=== PATIENT | female | born 1990 | race Caucasian/White ===

== ENCOUNTER 2017-11-23 12:35 | Inpatient (IN) ==
--- NOTE | 2017-11-23 14:11 | ED ---
HPI General Chief Complaint: Abdominal Pain Stated Complaint: Poss gul stones x 1 day Time Seen by Provider: 11/23/17 14:02 History of Present Illness HPI narrative: The patient was seen and examined in the presence of the nurse. This patient complains of abdominal pain. She woke up at 4 AM this morning with the pain. Severity is moderate. Duration is 10 hours. Location of pain is right upper quadrant. No alleviating factors. No exacerbating factors. She did have a workup at [facility] emergency room for the exact same thing recently and was found to have gallstones on ultrasound. Related Data Home Medications Medication Instructions Recorded Confirmed tramadol 50 mg PO Q6H 11/23/17 11/23/17 Allergies Allergy/AdvReac Type Severity Reaction Status Date / Time No Known Allergies Allergy Verified 11/23/17 12:53 Review of Systems Except as stated in HPI: all other systems reviewed are negative [facility] Medical History Medical History Hx of gallstones (Acute) Surgical History Surgical History No history of previous surgery (Acute) Social History Social History Substance History: No History of Abuse Second Hand Smoke Exposure: No Smoking Status: Current some day smoker Tobacco Type: Cigarettes How Often Do You Have a Drink Containing Alcohol: Monthly or less Recent Travel in [facility] within the Last 8 Weeks: No Recent Out of Country Travel within the Last 8 Weeks: No Exam Narrative Exam Narrative: GENERAL: Well-nourished, well-developed patient with abdominal pain . SKIN: Focused skin assessment reveals no rash and nodules. Skin is Warm and dry. HEAD: Atraumatic. Normocephalic. EYES: Pupils equal and round. No scleral icterus. No injection or drainage. ENT: No nasal bleeding or discharge. Mucous membranes pink and moist. NECK: Trachea midline. No JVD. CARDIOVASCULAR: Regular rate and rhythm. No murmur appreciated. RESPIRATORY: No accessory muscle use. Clear to auscultation. Breath sounds equal bilaterally. GASTROINTESTINAL: Abdomen soft, right upper quadrant is tender without rebound or guarding, nondistended. Hepatic and splenic margins not palpable. MUSCULOSKELETAL: No obvious deformities. No clubbing. No cyanosis. No edema. NEUROLOGICAL: Awake and alert. No obvious cranial nerve deficits. Motor grossly within normal limits. Normal speech. PSYCHIATRIC: Appropriate mood and affect; insight and judgment normal. Course Initial Documented Vital Signs Temperature 98.7 F 11/23/17 12:54 Pulse Rate 63 11/23/17 12:54 Respiratory Rate 16 11/23/17 12:54 Blood Pressure 128/68 11/23/17 12:54 Pulse Oximetry 99 11/23/17 12:54 Last Documented Vital Signs Temperature 98.7 F 11/23/17 12:54 Pulse Rate 60 11/23/17 18:24 Respiratory Rate 18 11/23/17 18:24 Blood Pressure 122/78 11/23/17 18:24 Pulse Oximetry 98 11/23/17 18:24 Sign Out Sign Out Data: Patient Sign Out occurred on 11/23/17 at 15:20. Patient's care was discussed, and care was transferred from Herrera Ricardo MD to Wesley Juan MD. Sign Out Comment: I am checking the patient out to the 3 PM physician to assist with disposition after workup complete Last updated by Herrera Ricardo MD at 11/23/17 14:46 Post-Handoff Eval: Patient has significant persistent pain to epigastrium radiating to right scapula consistent with Mary no cholelithiasis and pancreatitis. Leukocytosis evidenced and patient admitted for retrograde evaluation and surgical evaluation Medical Decision Making MDM Narrative Medical decision making narrative: IV placed and labs studies sent I gave her injection of morphine and Zofran for symptom relief Going to order ultrasound of the right upper quadrant to evaluate for cholecystitis changes. Differential Diagnosis Differential Diagnosis: Cholecystitis, biliary colic, pancreatitis Medical Records Medical records reviewed: Yes I reviewed the patient's medical records. Lab Data Result diagrams: 11/23/17 16:55 11/23/17 16:55 Lab Results 11/23/17 11/23/17 11/23/17 Range/Units 16:55 16:55 16:55 CBC w Diff Auto diff final WBC 12.3 H (4.0-11.0) th/mm3 RBC 4.98 (4.00-5.30) mil/mm3 Hgb 14.9 (11.6-15.3) gm/dL Hct 44.1 (35.0-46.0) % MCV 88.4 (80.0-100.0) fL MCH 29.9 (27.0-34.0) pg MCHC 33.8 (32.0-36.0) % RDW 14.1 (11.6-17.2) % Plt Count 223 (150-450) th/mm3 MPV 9.9 (7.0-11.0) fL Neut % (Auto) 85.3 H (16.0-70.0) % Lymph % (Auto) 9.4 (9.0-44.0) % Union % (Auto) 3.1 (0.0-8.0) % Eos % (Auto) 0.1 (0.0-4.0) % Baso % (Auto) 2.1 H (0.0-2.0) % Neut # (Auto) 10.4 H (1.8-7.7) th/mm3 Lymph # (Auto) 1.2 (1.0-4.8) th/mm3 Union # (Auto) 0.4 (0.0-0.9) th/mm3 Eos # (Auto) 0.0 (0.0-0.4) th/mm3 Baso # (Auto) 0.3 H (0.0-0.2) th/mm3 WBC Differential . Differential Comment . PT 11.2 (9.8-11.6) sec INR 1.1 Ratio APTT 22.3 L (24.3-30.1) sec Sodium 142 (136-145) meq/L Potassium 3.8 (3.5-5.1) meq/L Chloride 113 H (98-107) meq/L Carbon Dioxide 20.5 L (21.0-32.0) meq/L Anion Gap 9 (5-15) meq/L BUN 11 (7-18) mg/dL Creatinine 0.67 (0.50-1.00) mg/dL Estimated GFR Greater than 89 (>89) mL/min Random Glucose 108 H (74-106) mg/dL Calcium 8.3 L (8.5-10.1) mg/dL Total Bilirubin 1.5 H (0.2-1.0) mg/dL AST 98 H (15-37) U/L ALT 111 H (10-53) U/L Alkaline Phosphatase 115 (45-117) U/L Total Protein 6.9 (6.4-8.2) g/dL Albumin 3.6 (3.4-5.0) g/dL Lipase 96108 H (73-393) U/L Imaging Data Radiologist's impression: Gallbladder Ultrasound 11/23/17 14:30 CONCLUSION: Discharge Plan Discharge Disposition Patient Disposition: 30 Still Patient Discharge Condition Condition: Stable Discharge Details Diagnosis: Cholelithiasis, Acute pancreatitis Physicians Team ED Provider: Wesley Juan Primary Care Provider: Primary Care Kelly Gonzales Attending Provider: Diallo Rehman Status ED Status: Admitted Patient
[2017-11-23] MEDS ORDERED: Morphine Inj 4 MG/ML Vial IV.PUSH ONE ×4 (14:30→19:37)
[2017-11-23] MEDS ORDERED: Sod Chloride 0.9% Inj 1,000 ML IV.SIG ONE (14:30)
--- NOTE | 2017-11-23 16:12 | US ---
EXAM DATE: 11/23/2017 4:01 PM EDT AGE/SEX: 27 years / Female INDICATIONS: Right upper quadrant abdominal pain. CLINICAL DATA: This is the patient's initial encounter. Patient reports that signs and/or symptoms h ave been present for 1 day and indicates a pain score of 4/10. MEDICAL/SURGICAL HISTORY: . Abdominal pain. None. COMPARISON: No prior exams available for comparison. MEASUREMENTS: Liver:__ 16.9 cm. Common Bile Duct:__ 11mm. FINDINGS: Liver: The liver is mildly prominent and there is apparent mild intrahepatic biliary ductal dilatati on. There is no focal mass. There is no ascites. Portal Vein: Hepatopedal flow seen in portal vein. Common Duct: The common bile duct is abnormally enlarged and measures up to 1.1 cm. There is no visu alized filling defect or stone. Entire duct could not be visualized. Gallbladder: The gallbladder is normal in size and wall thickness with no pericholecystic fluid. The re are multiple echogenic gallstones layering dependently in the gallbladder with posterior shadowing . Pancreas: The visualized portions of the pancreas are within normal limits. Right Kidney: Normal echotexture and cortical thickness. No mass or hydronephrosis. Other: None. 1. Cholelithiasis with small echogenic gallstones layering dependently. There is no gallbladder wall thickening or para cholecystic fluid. 2. Enlarged common bile duct measuring up to 1.1 cm with no visualized stone. The entire duct could not be visualized in the distal obstruction cannot be excluded. Electronically signed by: Francisco J Knowles MD 11/23/2017 4:11 PM EDT
[2017-11-23 17:02] LABS: Baso # (Auto) 0.3 th/mm3 (0.0-0.2); Baso % (Auto) 2.1 % (0.0-2.0); Eos % (Auto) 0.1 % (0.0-4.0); Hematocrit 44.1 % (35.0-46.0); Hemoglobin 14.9 gm/dL (11.6-15.3); Lymph # (Auto) 1.2 th/mm3 (1.0-4.8); Lymph % (Auto) 9.4 % (9.0-44.0); Mean Corpuscular HGB Conc 33.8 % (32.0-36.0); Mean Corpuscular Hemoglobin 29.9 pg (27.0-34.0); Mean Corpuscular Volume 88.4 fL (80.0-100.0); Mean Platelet Volume 9.9 fL (7.0-11.0); Mono # (Auto) 0.4 th/mm3 (0.0-0.9); Mono % (Auto) 3.1 % (0.0-8.0); Neut # (Auto) 10.4 th/mm3 (1.8-7.7); Neut % (Auto) 85.3 % (16.0-70.0); Platelet Count 223 th/mm3 (150-450); Red Blood Count 4.98 mil/mm3 (4.00-5.30); Red Cell Distribution Width 14.1 % (11.6-17.2); White Blood Count 12.3 th/mm3 (4.0-11.0)
[2017-11-23 17:24] LABS: Chloride 113 meq/L (98-107); Potassium 3.8 meq/L (3.5-5.1); Sodium 142 meq/L (136-145)
[2017-11-23 17:27] LABS: Albumin 3.6 g/dL (3.4-5.0); Anion Gap 9 meq/L (5-15); Calcium 8.3 mg/dL (8.5-10.1); Carbon Dioxide 20.5 meq/L (21.0-32.0); Glucose,Random 108 mg/dL (74-106)
[2017-11-23 17:28] LABS: Blood Urea Nitrogen 11 mg/dL (7-18)
[2017-11-23 17:29] LABS: Activated Partial Thrombo Time 22.3 sec (24.3-30.1); INR 1.1 Ratio; Prothrombin Time 11.2 sec (9.8-11.6)
[2017-11-23 17:30] LABS: Alanine Aminotransferase 111 U/L (10-53); Aspartate Aminotransferase 98 U/L (15-37)
[2017-11-23 17:31] LABS: Glomerular Filtration Rate Greater Than 89 mL/min (>89)
[2017-11-23 17:32] LABS: Total Protein 6.9 g/dL (6.4-8.2)
[2017-11-23 17:33] LABS: Alkaline Phosphatase 115 U/L (45-117); Lipase 19085 U/L (73-393)
[2017-11-23] MEDS ORDERED: Acetaminophen 325 MG Tablet PO PRN (19:38)
[2017-11-23] MEDS ORDERED: Morphine Inj 4 MG/ML Vial IV.PUSH PRN (19:44)
[2017-11-23] MEDS: Sod Chloride 0.9% Inj 1,000 ML IV.CONT SCH (19:46)
[2017-11-23] MEDS ORDERED: Temazepam 15 MG Capsule PO PRN (21:00)
[2017-11-23] MEDS: HYDROmorphone PF Inj 2 MG/ML Vial IV.PUSH PRN (21:06)
[2017-11-24] MEDS: HYDROmorphone PF Inj 2 MG/ML Vial IV.PUSH PRN ×5 (01:17→18:43)
[2017-11-24] MEDS: Sod Chloride 0.9% Inj 1,000 ML IV.CONT SCH ×2 (06:01→16:32)
[2017-11-24 07:20] LABS: Hematocrit 45.1 % (35.0-46.0); Hemoglobin 15.7 gm/dL (11.6-15.3); Mean Corpuscular HGB Conc 34.8 % (32.0-36.0); Mean Corpuscular Hemoglobin 30.6 pg (27.0-34.0); Mean Corpuscular Volume 87.9 fL (80.0-100.0); Mean Platelet Volume 10.3 fL (7.0-11.0); Platelet Count 220 th/mm3 (150-450); Red Blood Count 5.13 mil/mm3 (4.00-5.30); Red Cell Distribution Width 14.3 % (11.6-17.2)
[2017-11-24 07:32] LABS: Chloride 114 meq/L (98-107); Potassium 3.1 meq/L (3.5-5.1); Sodium 147 meq/L (136-145)
[2017-11-24 07:40] LABS: Calcium 8.1 mg/dL (8.5-10.1)
[2017-11-24 07:41] LABS: Albumin 3.3 g/dL (3.4-5.0); Anion Gap 13 meq/L (5-15); Blood Urea Nitrogen 9 mg/dL (7-18); Carbon Dioxide 20.2 meq/L (21.0-32.0); Glucose,Random 91 mg/dL (74-106)
[2017-11-24 07:44] LABS: Alanine Aminotransferase 112 U/L (10-53); Aspartate Aminotransferase 63 U/L (15-37); Glomerular Filtration Rate Greater Than 89 mL/min (>89)
[2017-11-24 07:45] LABS: Total Protein 6.5 g/dL (6.4-8.2)
[2017-11-24 07:46] LABS: Lipase 3111 U/L (73-393)
[2017-11-24 07:47] LABS: Alkaline Phosphatase 115 U/L (45-117)
--- NOTE | 2017-11-24 09:10 | MR ---
EXAM DATE: 11/24/2017 8:52 AM EDT AGE/SEX: 27 years / Female INDICATIONS: Abdominal pain. Abnormal ultrasound demonstrating cholelithiasis with small echogenic gallstones. The common bile duct was enlarged at 1.1 cm. CLINICAL DATA: This is the patient's subsequent encounter. Patient reports that signs and symptoms h ave been present for 2 days and indicates a pain score of 3/10. MEDICAL/SURGICAL HISTORY: None. None. COMPARISON: [facility], US ABDOMEN - GALLBLADDER, 11/23/2017. . TECHNIQUE: Multiplanar, multisequence images of the abdomen were obtained without contrast including dedicated cholangiographic images. FINDINGS: Study is degraded by motion artifact. Liver: The liver is homogeneous and normal in signal intensity with no focal defects. Is a small jennifer unt of ascitic fluid surrounding the liver margins. Intrahepatic Bile Ducts: There is no intrahepatic biliary ductal dilatation. Common Bile Duct: The common bile duct is prominent measuring up to 8 to 9 mm in greatest diameter. There are no filling defects or mass lesions identified. Gallbladder: Multiple low signal gallstones are noted within the gallbladder. Gallbladder wall thick ening versus pericholecystic fluid measuring up to approximately a centimeter. Pancreas: The pancreas appears normal in signal with no focal parenchymal abnormalities. The pancrea tic duct is normal in caliber with no filling defects, or obstructing lesions identified. There is a small right pleural effusion. CONCLUSION: 1. Cholelithiasis with numerous small low signal gallstones. Gallbladder wall thickening versus lio cholecystic fluid measuring up to a centimeter. 2. The common bile duct is prominent measuring 8 to 9 mm in size with no distinct filling defects. 3. Small amount of ascitic fluid in the abdomen. 4. Small right pleural effusion. 5. The study is degraded by motion artifact decreasing sensitivity. Electronically signed by: Francisco J Knowles MD 11/24/2017 9:09 AM EDT
--- NOTE | 2017-11-24 11:19 | P.HP ---
History of Present Illness Primary Care Physician: No Primary Care Physician Chief Complaint: Abdominal pain History of Present Illness: 27-year-old female with no chronic medical illnesses who had been having approximate 1 month history of abdominal pain, gallstone pain. Patient states that was month ago she went to [facility] physician was told that she had gallstones and should make outpatient appointment with general surgery for procedure. However patient has been unsuccessful thus far in doing that. Then day before yesterday she started having abdominal pain that progressively got worse until yesterday she had significant nausea and vomiting, severe abdominal pain. Patient came to emergency department for evaluation and found to have significant abnormalities with ultrasound indicating possible distal obstruction of the common bile duct, elevated liver enzymes, severely elevated lipase level. Patient was admitted the hospital for gallstone pancreatitis. MRCP was performed which did indicate pericholecystic fluid, however, mild tach is clear at this time. Lipase level has significantly improved. Indicating possible passed stone with gallstone pancreatitis. Patient states that she still a significant amount of pain. Requiring IV pain medication. However she is very thirsty and would like to drink and eat at this time. - Diagnosis (1) Acute gallstone pancreatitis Inpatient Certification: I certify that the inpatient services were ordered in accordance with Medicare regulations governing the order. This includes certification that hospital inpatient services are reasonable and necessary and in the case of services not specified as inpatient-only under 42 CFR 419.22(n), that they are appropriately provided as inpatient services in accordance to with the 2-midnight benchmark under 43 CFR 412.3(e) Estimated Total Length of Stay (Days): 3 Plans for Post Hospital Care: Home Review of Systems Gastrointestinal: Reports abdominal pain, Reports nausea, Reports vomiting PMFSH - History History Provided By: Patient, Significant Other - Medical History Medical History: Medical History (Last Reviewed 11/24/17 @ 11:13 by PEPE Iqbal) Hx of gallstones - Surgical History Surgical History: Surgical History (Last Reviewed 11/24/17 @ 11:13 by PEPE Iqbal) No history of previous surgery - Family History Family History: Family History (Last Updated 11/24/17 @ 11:13 by PEPE Iqbal) Other No pertinent family history - Tobacco History Second Hand Smoke Exposure: Yes Tobacco Use In Past 30 Days: Yes Smoking Status: Current every day smoker Tobacco Type: Cigarettes - Alcohol History How Often Do You Have a Drink Containing Alcohol: Monthly or less - Substance Use History Substance History: No History of Abuse - Travel History Recent Travel in the [place] Within the Last 8 Weeks: No Recent Travel Out of the Country Within the Last 8 Weeks: No - Immunization History Tetanus Immunization: Unsure Hx Influenza Vaccine This Season: No Medications and Allergies Active Medications: Active Medications Acetaminophen (Tylenol) 650 mg PO Q4H PRN PRN Reason: Temp > 100.4 Hydromorphone HCl (Dilaudid Pf Inj) 0.5 mg IV.PUSH Q4H PRN PRN Reason: ABDOMINAL PAIN 1-10 Last Admin: 11/24/17 10:45 Dose: 0.5 mg Sodium Chloride (Ns Inj) 1,000 mls @ 150 mls/hr IV.CONT .Q6H40M [facility] Last Admin: 11/24/17 06:01 Dose: 150 mls/hr Ceftazidime 1,000 mg/ Sodium (Chloride) 100 mls @ 200 mls/hr IV.SIG Q8H [facility] Last Infusion: 11/24/17 05:35 Dose: Infused Metronidazole/Sodium Chloride (Flagyl 500 Mg Inj) 100 mls @ 100 mls/hr IV.SIG Q8H [facility] Last Infusion: 11/24/17 06:32 Dose: Infused Ondansetron HCl (Zofran Odt) 4 mg PO Q6H PRN PRN Reason: NAUSEA OR VOMITING Sodium Chloride (Ns Flush) 2 ml IV.FLUSH PRN PRN PRN Reason: FLUSH AFTER USING IV ACCESS Temazepam (Restoril) 15 mg PO HS PRN PRN Reason: INSOMNIA Allergies Allergy/AdvReac Type Severity Reaction Status Date / Time No Known Allergies Allergy Verified 11/23/17 12:53 Home Medications Medication Instructions Recorded Confirmed Type tramadol 50 mg PO Q6H 11/23/17 11/23/17 History Exam Vital signs: Vital Signs 11/23/17 12:54 11/23/17 14:52 11/23/17 17:43 Temperature 98.7 F Pulse Rate 63 60 64 Respiratory Rate 16 18 18 Blood Pressure 128/68 117/70 125/75 Pulse Oximetry 99 100 98 11/23/17 18:24 11/23/17 20:26 11/23/17 21:16 Temperature 98.7 F Pulse Rate 60 82 66 Respiratory Rate 18 20 20 Blood Pressure 122/78 132/70 141/78 H Pulse Oximetry 98 11/23/17 21:40 11/23/17 22:56 11/24/17 04:00 Temperature 97.5 F L 97.9 F Pulse Rate 54 L 70 Respiratory Rate 16 16 Blood Pressure 132/71 131/76 Pulse Oximetry 98 98 99 11/24/17 08:03 Temperature 99.1 F Pulse Rate 81 Respiratory Rate 20 Blood Pressure 145/68 H Pulse Oximetry 96 Intake & Output 11/23/17 11/24/17 11/24/17 18:59 06:59 18:59 Intake Total 2400 / 2400 0 / 0 Balance 2400 / 2400 0 / 0 Weight 100 kg 103.7 kg Intake: IV 2400 / 2400 NS Inj 1,000 ML @ 150 mls/hr IV 1000 / 1000 .CONT .Q6H40M [facility] Rx#: [id number] Tazicef Inj 1,000 MG In NS Inj 200 / 200 100 ML @ 200 mls/hr IV.SIG Q8H [facility] Rx#:[id number] Flagyl 500 MG Inj 100 ML @ 100 200 / 200 mls/hr IV.SIG Q8H [facility] Rx#: [id number] Oral 0 / 0 Other: Date of Last Bowel Movement 11/20/17 Weight On Admission 103.7 kg Narrative: GENERAL: Well-developed, well-nourished, in no acute distress. alert and orientated HEENT: Head is normocephalic without any lesions or masses noted. Facial features are symmetric. Eyes: Pupils equal round reactive to light. Extraocular muscles are intact. Conjunctivae were clear. Oropharyngeal: Pharynx without any erythema edema. Tongue is midline without deviation. Buccal mucosa is moist without any masses or lesions NECK: Supple without any masses. Trachea midline no deviation. No JVD, no bruits are appreciated CARDIAC: Regular rhythm, regular rate. S1/S2 are heard. No murmurs gallops or rubs. LUNGS: Clear to auscultation bilaterally. No wheeze, rhonchi or rales. No use of accessory muscles on inspiration or expiration. ABDOMEN: Soft, mild diffuse tenderness noted. Nondistended. Bowel sounds heard in all 4 quadrants. No organomegaly or masses. Negative rebound, negative guarding EXTREMITIES: No edema, pulses are equal bilaterally. No cyanosis or clubbing NEUROLOGY: Mood and affect appear appropriate. Cranial nerves II through XII grossly intact. Muscle strength 5/5 in upper and lower extremities bilaterally. Deep tendon reflexes are 2+ in upper and lower extremities bilaterally. Results - Labs CBC & Chem 7: 11/24/17 05:40 11/24/17 05:40 Labs: Laboratory Results - last 24 hr 11/23/17 11/23/17 11/23/17 16:55 16:55 16:55 CBC w Diff Auto diff final WBC 12.3 H RBC 4.98 Hgb 14.9 Hct 44.1 MCV 88.4 MCH 29.9 MCHC 33.8 RDW 14.1 Plt Count 223 MPV 9.9 Neut % (Auto) 85.3 H Lymph % (Auto) 9.4 Clarke % (Auto) 3.1 Eos % (Auto) 0.1 Baso % (Auto) 2.1 H Neut # (Auto) 10.4 H Lymph # (Auto) 1.2 Clarke # (Auto) 0.4 Eos # (Auto) 0.0 Baso # (Auto) 0.3 H WBC Differential . Differential Comment . PT 11.2 INR 1.1 APTT 22.3 L Sodium 142 Potassium 3.8 Chloride 113 H Carbon Dioxide 20.5 L Anion Gap 9 BUN 11 Creatinine 0.67 Estimated GFR Greater than 89 Random Glucose 108 H Calcium 8.3 L Total Bilirubin 1.5 H AST 98 H ALT 111 H Alkaline Phosphatase 115 Total Protein 6.9 Albumin 3.6 Lipase 44716 H 11/24/17 11/24/17 05:40 05:40 CBC w Diff WBC 18.0 H RBC 5.13 Hgb 15.7 H Hct 45.1 MCV 87.9 MCH 30.6 MCHC 34.8 RDW 14.3 Plt Count 220 MPV 10.3 Neut % (Auto) Lymph % (Auto) Clarke % (Auto) Eos % (Auto) Baso % (Auto) Neut # (Auto) Lymph # (Auto) Clarke # (Auto) Eos # (Auto) Baso # (Auto) WBC Differential Differential Comment PT INR APTT Sodium 147 H Potassium 3.1 L Chloride 114 H Carbon Dioxide 20.2 L Anion Gap 13 BUN 9 Creatinine 0.60 Estimated GFR Greater than 89 Random Glucose 91 Calcium 8.1 L Total Bilirubin 1.1 H AST 63 H ALT 112 H Alkaline Phosphatase 115 Total Protein 6.5 Albumin 3.3 L Lipase 3111 H - Imaging Impressions Gallbladder Ultrasound 11/23/17 14:30 CONCLUSION: Cholangiopancreatography MRI 11/24/17 00:00 CONCLUSION: Caprinzeina VTE Risk Assessment Ibanrini VTE Risk Assessment: No/Low Risk (score <= 1) Ibanrini Risk Assessment Model: Point Value = 1 Point Value = 2 Point Value = 3 Point Value = 5 Age 41-60 Minor surgery BMI > 25 kg/m2 Swollen legs Varicose veins or History of unexplained or recurrent spontaneous Oral contraceptives or hormone replacement Sepsis (< 1 month) Serious lung disease, including pneumonia (< 1 month) Abnormal pulmonary function Acute myocardial infarction Congestive heart failure (< 1 month) History of inflammatory bowel disease Medical patient at bed rest Age 61-74 Arthroscopic surgery Major open surgery (> 45 min) Laparoscopic surgery (> 45 min) Malignancy Confined to bed (> 72 hours) Immobilizing plaster cast Central venous access Age >= 75 History of VTE Family history of VTE Factor V Leiden Prothrombin [id number] Lupus anticoagulant Anticardiolipin antibodies Elevated serum homocysteine Heparin-induced thrombocytopenia Other congenital or acquired thrombophilia Stroke (< 1 month) Elective arthroplasty Hip, pelvis, or leg fracture Acute spinal cord injury (< 1 month) Prophylaxis Regimen: Total Risk Factor Score Risk Level Prophylaxis Regimen 0-1 Low Early ambulation 2 Moderate Order ONE of the following: *Sequential Compression Device (SCD) *Heparin 5000 units SQ BID 3-4 Higher Order ONE of the following medications: *Heparin 5000 units SQ TID *Enoxaparin/Lovenox 40 mg SQ daily (WT < 150 kg, CrCl > 30 mL/min) *Enoxaparin/Lovenox 30 mg SQ daily (WT < 150 kg, CrCl > 10-29 mL/min) *Enoxaparin/Lovenox 30 mg SQ BID (WT < 150 kg, CrCl > 30 mL/min) AND/OR *Sequential Compression Device (SCD) 5 or more Highest Order ONE of the following medications: *Heparin 5000 units SQ TID (Preferred with Epidurals) *Enoxaparin/Lovenox 40 mg SQ daily (WT < 150 kg, CrCl > 30 mL/min) *Enoxaparin/Lovenox 30 mg SQ daily (WT < 150 kg, CrCl > 10-29 mL/min) *Enoxaparin/Lovenox 30 mg SQ BID (WT < 150 kg, CrCl > 30 mL/min) AND *Sequential Compression Device (SCD) Assessment and Plan - Assessment (1) Acute gallstone pancreatitis Code(s): K85.10 - Biliary acute pancreatitis without necrosis or infection Status: Acute - Plan Gallstone pancreatitis -Patient presented with significant abdominal pain, nausea, vomiting -Gallbladder ultrasound did indicate possible distal common bile duct obstruction -MRCP was performed which showed clear common bile duct with gallstones, gallbladder wall thickening versus pericholecystic fluid measuring up to a centimeter. Common bile duct is prominent at 8-9 mm in size -Laboratory studies did indicate elevated livers enzymes and significant pancreatic enzyme elevation -Given the fact that MRCP is showing no filling defects in the common bile duct. The patient had passed a gallstone, liver enzymes and pancreatic enzymes have also improved significantly. -Staff Toxicologist had follow the patient and indicating general surgery consultation -General surgery was consulted who will evaluate the patient today, plan for lap karine tomorrow morning if lipase below 1000 Leukocytosis -Continues to worsen -Given the worsening leukocytosis, gallstone pancreatitis. Patient started on empirical antibiotics include cefepime and Flagyl -Continue to follow CBC DVT prevention -Sequential compression devices
--- NOTE | 2017-11-24 16:38 | P.CONGS ---
HPI Gen Surgery Consult Note Consult date: 11/24/17 Reason for consult: abdominal pain Requesting physician: Herrera Mcrae Narrative: This is a 27 year old female with no significant past medical history who presented to the ED with about a 2 day history of abdominal pain with associated nausea. The patient reports that about 6 months ago or so she was in the ED in the [place] and diagnosed with gallstones. She was referred to a General Surgeon of whom she is unsure of the name for evaluation for cholecystectomy. She did not follow up. She joined a Facebook support group for patients with gallbladder issues and gallstones which she states helped her with dietary modifications. Of note the patient was on a Keto diet starting a few months ago and lost about 14 pounds intentionally. She was eating some dairy during this time and noticed RUQ pain. Once she was diagnosed with gallstones she started a low fat diet and lost an additional 16 pounds intentionally. A US of the gallbladder was obtained which showed cholelithiasis with a prominent common bile duct without wall thickening. An MRCP was done which showed an enlarged common bile duct but no filling defects. Her liver enzymes are elevated. Her lipase on admission was 19,000 and today down to 3,000. A General Surgery consultation has been requested. <Geeta Suarez - Last Filed: 11/25/17 09:30> Reason for consult: gallstones (Right upper quadrant abdominal pain) Narrative: CONSULTATION NOTE FOR SURGICAL ATTENDING, DR. JULIO ROCHE <MelchorJulio - Last Filed: 11/25/17 11:13> Review of Systems Constitutional: Denies chills, Denies night sweats Eyes: Denies blurry vision, Denies change in vision Ears, Nose, Mouth, and Throat: Denies hearing loss Cardiovascular: Denies chest pain, Denies chest pain at rest, Denies chest pain with activity Respiratory: Denies cough, Denies coughing up blood Gastrointestinal: Reports abdominal pain, Reports nausea, Denies vomiting Genitourinary: Denies absent period Musculoskeletal: Denies abnormal walking Skin/Breast: Denies lesions, Denies rash Neurologic: Denies abnormal hearing, Denies headache(s) Psychiatric: Denies anxiety, Denies confusion, Denies depression Endocrine: Denies cold intolerance, Denies heat intolerance Hematologic/Lymphatic: Denies easy bleeding Allergic/Immunologic: Denies lip swelling <Geeta Suarez - Last Filed: 11/25/17 09:30> Gastrointestinal: Reports abdominal pain (Right upper quadrant abdominal pain) <Julio Roche - Last Filed: 11/25/17 11:13> PMFSH - History History Provided By: Patient - Medical History Medical History: Medical History (Last Reviewed 11/24/17 @ 16:34 by NISHANT Monzon) Hx of gallstones - Surgical History Surgical History: Surgical History (Last Reviewed 11/24/17 @ 16:34 by NISHANT Monzon) No history of previous surgery - Family History Family History: Family History (Last Updated 11/24/17 @ 11:13 by PEPE Iqbal) Other No pertinent family history - Tobacco History Second Hand Smoke Exposure: Yes Tobacco Use In Past 30 Days: Yes Smoking Status: Current some day smoker Tobacco Type: Cigarettes - Alcohol History How Often Do You Have a Drink Containing Alcohol: Monthly or less - Substance Use History Substance History: No History of Abuse - Travel History Recent Travel in the [place] Within the Last 8 Weeks: No Recent Travel Out of the Country Within the Last 8 Weeks: No - Immunization History Tetanus Immunization: Unsure Hx Influenza Vaccine This Season: No <Geeta Suarez - Last Filed: 11/25/17 09:30> - Medical / Surgical Hx Neg / Unobtainable Surgical History: No Previous Surgery - Medical History Medical History: Medical History (Last Reviewed 11/24/17 @ 16:34 by NISHANT Monzon) Hx of gallstones - Surgical History Surgical History: Surgical History (Last Reviewed 11/25/17 @ 11:06 by Julio Roche MD) No history of previous surgery - Family History Family History: Family History (Last Updated 11/24/17 @ 11:13 by PEPE Iqbal) Other No pertinent family history <Julio Roche - Last Filed: 11/25/17 11:13> Medications and Allergies Active Medications: Active Medications Acetaminophen (Tylenol) 650 mg PO Q4H PRN PRN Reason: Temp > 100.4 Hydromorphone HCl (Dilaudid Pf Inj) 0.5 mg IV.PUSH Q4H PRN PRN Reason: ABDOMINAL PAIN 1-10 Last Admin: 11/24/17 14:53 Dose: 0.5 mg Sodium Chloride (Ns Inj) 1,000 mls @ 150 mls/hr IV.CONT .Q6H40M [facility] Last Admin: 11/24/17 06:01 Dose: 150 mls/hr Ceftazidime 1,000 mg/ Sodium (Chloride) 100 mls @ 200 mls/hr IV.SIG Q8H [facility] Last Infusion: 11/24/17 13:18 Dose: Infused Metronidazole/Sodium Chloride (Flagyl 500 Mg Inj) 100 mls @ 100 mls/hr IV.SIG Q8H [facility] Last Infusion: 11/24/17 14:24 Dose: Infused Ondansetron HCl (Zofran Odt) 4 mg PO Q6H PRN PRN Reason: NAUSEA OR VOMITING Sodium Chloride (Ns Flush) 2 ml IV.FLUSH PRN PRN PRN Reason: FLUSH AFTER USING IV ACCESS Temazepam (Restoril) 15 mg PO HS PRN PRN Reason: INSOMNIA <Geeta Suarez - Last Filed: 11/25/17 09:30> Active Medications: Active Medications Acetaminophen (Tylenol) 650 mg PO Q4H PRN PRN Reason: Temp > 100.4 Chlorhexidine Gluconate (Chlorhexidine 2% Cloth) 3 pack TOPICAL PRODUCE WEIGHER [facility] Stop: 11/28/17 10:44 Hydromorphone HCl (Dilaudid Pf Inj) 0.5 mg IV.PUSH Q4H PRN PRN Reason: ABDOMINAL PAIN 1-10 Last Admin: 11/25/17 08:27 Dose: 0.5 mg Sodium Chloride (Ns Inj) 1,000 mls @ 150 mls/hr IV.CONT .Q6H40M [facility] Last Infusion: 11/25/17 10:27 Dose: 0 mls/hr Ceftazidime 1,000 mg/ Sodium (Chloride) 100 mls @ 200 mls/hr IV.SIG Q8H [facility] Last Infusion: 11/25/17 05:00 Dose: Infused Metronidazole/Sodium Chloride (Flagyl 500 Mg Inj) 100 mls @ 100 mls/hr IV.SIG Q8H [facility] Last Infusion: 11/25/17 06:00 Dose: Infused Lactated Ringer's (Lr 1000 Ml Inj) 1,000 mls @ 30 mls/hr IV.SIG .Q24H [facility] Stop: 11/28/17 10:44 Sodium Chloride (Ns Inj) 500 mls @ 30 mls/hr IV.SIG .Q10H [facility] Stop: 11/28/17 10:44 Metoprolol Tartrate (Lopressor) 25 mg PO PRODUCE WEIGHER [facility] Stop: 11/28/17 10:44 Ondansetron HCl (Zofran Odt) 4 mg PO Q6H PRN PRN Reason: NAUSEA OR VOMITING Povidone Iodine (Betadine 5% Antisepsis Kit) 1 applicatio EACH NARE PRODUCE WEIGHER [facility] Stop: 11/28/17 10:44 Sodium Chloride (Ns Flush) 2 ml IV.FLUSH PRN PRN PRN Reason: FLUSH AFTER USING IV ACCESS Temazepam (Restoril) 15 mg PO HS PRN PRN Reason: INSOMNIA <Julio Roche - Last Filed: 11/25/17 11:13> Allergies Allergy/AdvReac Type Severity Reaction Status Date / Time No Known Allergies Allergy Verified 11/25/17 10:51 Home Medications Medication Instructions Recorded Confirmed Type tramadol 50 mg PO Q6H 11/23/17 11/23/17 History Exam Vital signs: Vital Signs 11/23/17 17:43 11/23/17 18:24 11/23/17 20:26 Temperature 98.7 F Pulse Rate 64 60 82 Respiratory Rate 18 18 20 Blood Pressure 125/75 122/78 132/70 Pulse Oximetry 98 98 11/23/17 21:16 11/23/17 21:40 11/23/17 22:56 Temperature 97.5 F L Pulse Rate 66 54 L Respiratory Rate 20 16 Blood Pressure 141/78 H 132/71 Pulse Oximetry 98 98 11/24/17 04:00 11/24/17 08:03 11/24/17 12:00 Temperature 97.9 F 99.1 F 96.9 F L Pulse Rate 70 81 89 Respiratory Rate 16 20 22 Blood Pressure 131/76 145/68 H 129/60 Pulse Oximetry 99 96 97 Intake & Output 11/23/17 11/24/17 11/24/17 18:59 06:59 18:59 Intake Total 2400 / 2400 200 / 200 Balance 2400 / 2400 200 / 200 Weight 100 kg 103.7 kg Intake: IV 2400 / 2400 200 / 200 NS Inj 1,000 ML @ 150 mls/hr IV 1000 / 1000 .CONT .Q6H40M [facility] Rx#: [id number] Tazicef Inj 1,000 MG In NS Inj 200 / 200 100 / 100 100 ML @ 200 mls/hr IV.SIG Q8H [facility] Rx#:[id number] Flagyl 500 MG Inj 100 ML @ 100 200 / 200 100 / 100 mls/hr IV.SIG Q8H [facility] Rx#: [id number] Oral 0 / 0 Other: Date of Last Bowel Movement 11/20/17 Weight On Admission 103.7 kg Narrative: GENERAL: Very pleasant 27 year old female resting in bed in no acute distress. SKIN: Warm and dry. HEAD: Atraumatic. Normocephalic. EYES: Pupils equal and round. No scleral icterus. No injection or drainage. ENT: No nasal bleeding or discharge. Mucous membranes pink and moist. NECK: Trachea midline. CARDIOVASCULAR: Regular rate and rhythm. RESPIRATORY: No accessory muscle use. Clear to auscultation. Breath sounds equal bilaterally. GASTROINTESTINAL: Abdomen soft, obese, nondistended; RUQ and LUQ tenderness with palpation. No visible scars or hernias. MUSCULOSKELETAL: Extremities without clubbing, cyanosis, or edema. No obvious deformities. NEUROLOGICAL: Awake and alert. No obvious cranial nerve deficits. Motor grossly within normal limits. Five out of 5 muscle strength in the arms and legs. Normal speech. PSYCHIATRIC: Appropriate mood and affect; insight and judgment normal. <Geeta Suarez - Last Filed: 11/25/17 09:30> Vital signs: Vital Signs 11/24/17 12:00 11/24/17 17:26 11/24/17 20:00 Temperature 96.9 F L 99.1 F 100.5 F H Pulse Rate 89 76 88 Respiratory Rate 22 20 20 Blood Pressure 129/60 130/66 125/66 Pulse Oximetry 97 98 97 11/25/17 00:00 11/25/17 04:00 11/25/17 08:00 Temperature 100.1 F H 100.4 F H 98.8 F Pulse Rate 94 H 92 H Respiratory Rate 18 18 Blood Pressure 95/56 L 113/65 Pulse Oximetry 96 99 11/25/17 10:40 Temperature 98.8 F Pulse Rate 89 Respiratory Rate 16 Blood Pressure 104/65 Pulse Oximetry 98 Intake & Output 11/24/17 11/25/17 11/25/17 18:59 06:59 18:59 Intake Total 1200 / 1200 1400 / 1400 Output Total 400 / 400 Balance 800 / 800 1400 / 1400 Weight 103.6 kg Intake: IV 1200 / 1200 1400 / 1400 NS Inj 1,000 ML @ 150 mls/hr IV 1000 / 1000 1000 / 1000 .CONT .Q6H40M [facility] Rx#: [id number] Tazicef Inj 1,000 MG In NS Inj 100 / 100 200 / 200 100 ML @ 200 mls/hr IV.SIG Q8H [facility] Rx#:[id number] Flagyl 500 MG Inj 100 ML @ 100 100 / 100 200 / 200 mls/hr IV.SIG Q8H [facility] Rx#: [id number] Oral 0 / 0 0 / 0 Output: Urine 400 / 400 Stool 0 / 0 Other: # Voids 4 Date of Last Bowel Movement 11/24/17 - Constitutional mild distress, average body habitus - Routine HEENT Exam Head: Present: normocephalic Eye: Present: EOMI - Routine Neck Exam Present: supple, full ROM - Routine Respiratory Exam Present: CTA bilaterally - Routine Cardiovascular Exam Present: RRR, S1, S2 - Routine Abdominal Exam Present: soft, tenderness (Right upper quadrant) <Julio Roche - Last Filed: 11/25/17 11:13> Results - Labs 11/25/17 05:09 11/25/17 05:19 Abnormal lab results 11/23/17 11/23/17 11/23/17 Range/Units 16:55 16:55 16:55 WBC 12.3 H (4.0-11.0) th/mm3 Hgb (11.6-15.3) gm/dL Neut % (Auto) 85.3 H (16.0-70.0) % Baso % (Auto) 2.1 H (0.0-2.0) % Neut # (Auto) 10.4 H (1.8-7.7) th/mm3 Baso # (Auto) 0.3 H (0.0-0.2) th/mm3 APTT 22.3 L (24.3-30.1) sec Sodium (136-145) meq/L Potassium (3.5-5.1) meq/L Chloride 113 H (98-107) meq/L Carbon Dioxide 20.5 L (21.0-32.0) meq/L Random Glucose 108 H (74-106) mg/dL Calcium 8.3 L (8.5-10.1) mg/dL Total Bilirubin 1.5 H (0.2-1.0) mg/dL AST 98 H (15-37) U/L ALT 111 H (10-53) U/L Albumin (3.4-5.0) g/dL Lipase 13413 H (73-393) U/L 11/24/17 11/24/17 Range/Units 05:40 05:40 WBC 18.0 H (4.0-11.0) th/mm3 Hgb 15.7 H (11.6-15.3) gm/dL Neut % (Auto) (16.0-70.0) % Baso % (Auto) (0.0-2.0) % Neut # (Auto) (1.8-7.7) th/mm3 Baso # (Auto) (0.0-0.2) th/mm3 APTT (24.3-30.1) sec Sodium 147 H (136-145) meq/L Potassium 3.1 L (3.5-5.1) meq/L Chloride 114 H (98-107) meq/L Carbon Dioxide 20.2 L (21.0-32.0) meq/L Random Glucose (74-106) mg/dL Calcium 8.1 L (8.5-10.1) mg/dL Total Bilirubin 1.1 H (0.2-1.0) mg/dL AST 63 H (15-37) U/L ALT 112 H (10-53) U/L Albumin 3.3 L (3.4-5.0) g/dL Lipase 3111 H (73-393) U/L Diabetes panel 11/23/17 11/24/17 Range/Units 16:55 05:40 Sodium 142 147 H (136-145) meq/L Potassium 3.8 3.1 L (3.5-5.1) meq/L Chloride 113 H 114 H (98-107) meq/L Carbon Dioxide 20.5 L 20.2 L (21.0-32.0) meq/L BUN 11 9 (7-18) mg/dL Creatinine 0.67 0.60 (0.50-1.00) mg/dL Calcium 8.3 L 8.1 L (8.5-10.1) mg/dL AST 98 H 63 H (15-37) U/L ALT 111 H 112 H (10-53) U/L Alkaline Phosphatase 115 115 (45-117) U/L Total Protein 6.9 6.5 (6.4-8.2) g/dL Albumin 3.6 3.3 L (3.4-5.0) g/dL Calcium panel 11/23/17 11/24/17 Range/Units 16:55 05:40 Calcium 8.3 L 8.1 L (8.5-10.1) mg/dL Albumin 3.6 3.3 L (3.4-5.0) g/dL Pituitary panel 11/23/17 11/24/17 Range/Units 16:55 05:40 Sodium 142 147 H (136-145) meq/L Potassium 3.8 3.1 L (3.5-5.1) meq/L Chloride 113 H 114 H (98-107) meq/L Carbon Dioxide 20.5 L 20.2 L (21.0-32.0) meq/L BUN 11 9 (7-18) mg/dL Creatinine 0.67 0.60 (0.50-1.00) mg/dL Calcium 8.3 L 8.1 L (8.5-10.1) mg/dL Adrenal panel 11/23/17 11/24/17 Range/Units 16:55 05:40 Sodium 142 147 H (136-145) meq/L Potassium 3.8 3.1 L (3.5-5.1) meq/L Chloride 113 H 114 H (98-107) meq/L Carbon Dioxide 20.5 L 20.2 L (21.0-32.0) meq/L BUN 11 9 (7-18) mg/dL Creatinine 0.67 0.60 (0.50-1.00) mg/dL Calcium 8.3 L 8.1 L (8.5-10.1) mg/dL Total Bilirubin 1.5 H 1.1 H (0.2-1.0) mg/dL AST 98 H 63 H (15-37) U/L ALT 111 H 112 H (10-53) U/L Alkaline Phosphatase 115 115 (45-117) U/L Total Protein 6.9 6.5 (6.4-8.2) g/dL Albumin 3.6 3.3 L (3.4-5.0) g/dL All other labs normal. - Imaging US - abdomen: report reviewed Additional studies: MRCP <Geeta Suarez - Last Filed: 11/25/17 09:30> - Labs 11/25/17 05:09 11/25/17 05:19 Abnormal lab results 11/25/17 11/25/17 Range/Units 05:09 05:19 WBC 13.3 H (4.0-11.0) th/mm3 Neut % (Auto) 76.6 H (16.0-70.0) % [place] % (Auto) 9.0 H (0.0-8.0) % Neut # (Auto) 10.1 H (1.8-7.7) th/mm3 [place] # (Auto) 1.2 H (0.0-0.9) th/mm3 Potassium 3.4 L (3.5-5.1) meq/L Chloride 112 H (98-107) meq/L Calcium 7.6 L (8.5-10.1) mg/dL Total Protein 5.4 L D (6.4-8.2) g/dL Albumin 2.4 L D (3.4-5.0) g/dL Lipase 937 H (73-393) U/L Diabetes panel 11/25/17 Range/Units 05:19 Sodium 142 (136-145) meq/L Potassium 3.4 L (3.5-5.1) meq/L Chloride 112 H (98-107) meq/L Carbon Dioxide 21.3 (21.0-32.0) meq/L BUN 9 (7-18) mg/dL Creatinine 0.59 (0.50-1.00) mg/dL Calcium 7.6 L (8.5-10.1) mg/dL AST 19 (15-37) U/L ALT 49 (10-53) U/L Alkaline Phosphatase 75 (45-117) U/L Total Protein 5.4 L D (6.4-8.2) g/dL Albumin 2.4 L D (3.4-5.0) g/dL Calcium panel 11/25/17 Range/Units 05:19 Calcium 7.6 L (8.5-10.1) mg/dL Albumin 2.4 L D (3.4-5.0) g/dL Pituitary panel 11/25/17 Range/Units 05:19 Sodium 142 (136-145) meq/L Potassium 3.4 L (3.5-5.1) meq/L Chloride 112 H (98-107) meq/L Carbon Dioxide 21.3 (21.0-32.0) meq/L BUN 9 (7-18) mg/dL Creatinine 0.59 (0.50-1.00) mg/dL Calcium 7.6 L (8.5-10.1) mg/dL Adrenal panel 11/25/17 Range/Units 05:19 Sodium 142 (136-145) meq/L Potassium 3.4 L (3.5-5.1) meq/L Chloride 112 H (98-107) meq/L Carbon Dioxide 21.3 (21.0-32.0) meq/L BUN 9 (7-18) mg/dL Creatinine 0.59 (0.50-1.00) mg/dL Calcium 7.6 L (8.5-10.1) mg/dL Total Bilirubin 0.8 (0.2-1.0) mg/dL AST 19 (15-37) U/L ALT 49 (10-53) U/L Alkaline Phosphatase 75 (45-117) U/L Total Protein 5.4 L D (6.4-8.2) g/dL Albumin 2.4 L D (3.4-5.0) g/dL All other labs normal. - Imaging Chest x-ray: report reviewed Abdominal x-ray: report reviewed CT scan - abdomen: image reviewed CT scan - chest: report reviewed CT scan - pelvis: report reviewed (MRCP reviewed) US - abdomen: image reviewed Additional studies: MRCP reviewed <Julio Roche - Last Filed: 11/25/17 11:13> Assessment and Plan - Plan 27 year old female with gallstone pancreatitis -Recheck labs in AM -If lipase continues to trend down will plan for laparoscopic cholecystectomy tomorrow -Obtain consents -Clear liquids; NPO after MN -IVF -Discussed procedure in detail including risks and benefits -All questions answered -Thank you for this consult; We will continue to follow Discussed Condition With: Dr. Melchor CANTU [place] <Geeta Suarez - Last Filed: 11/25/17 09:30> - Assessment (1) Acute gallstone pancreatitis Code(s): K85.10 - Biliary acute pancreatitis without necrosis or infection Status: Acute (2) Acute pancreatitis Code(s): K85.90 - Acute pancreatitis without necrosis or infection, unspecified Status: Acute Qualifiers: Pancreatitis type: biliary (3) Cholelithiasis Code(s): K80.20 - Calculus of gallbladder without cholecystitis without obstruction Status: Acute Qualifiers: Cholelithiasis location: gallbladder and bile duct Cholecystitis acuity: acute and chronic (4) Abnormal findings on diagnostic imaging of liver and biliary tract Code(s): R93.2 - Abnormal findings on diagnostic imaging of liver and biliary tract Status: Acute - Attending Attestation CONSULTATION NOTE FOR SURGICAL ATTENDING, DR. JULIO ROCHE I agree with above assessment and plan. The exam, history, and the medical decision-making described in the above note were completed with the assistance of the mid-level provider. I reviewed and agree with the findings presented. I attest that I had a [id number] encounter with the patient on the same day, and personally performed and documented my assessment and findings in the medical record. The following services were provided during this hospital visit: Chart data review, vital sign assessments/reviewing monitor data Review of consultations notes if present. Medication orders/review and/or management Ordering and/or reviewing lab tests Ordering and/or interpreting/reviewing x-rays and/or diagnostic studies Care of the patient and discussion of the patient with the care team Documentation time To help prompt me to consider important information that might be impacting today's encounter and assessment, Information from prior notes written by myself or my colleagues may have been "brought forward/copy and pasted" into today's note. <Julio Roche - Last Filed: 11/25/17 11:13>
--- NOTE | 2017-11-24 17:41 | P.CONGI ---
History of Present Illness Consult date: 11/24/17 Consult reason: Abdominal pain, elevated liver function tests, dilated common bile duct Chief complaint: CHOLELITHIASIS; PANCREATITIS History of Present Illness: Patient is a 27-year-old female previously healthy who for the past 2 months has had intermittent but frequent episodes of right upper quadrant abdominal pain sometimes associated with nausea vomiting at one time she had fever and went to the emergency room she was told she had gallstones and that she needed surgery but was not admitted past couple days the pain had been severe with lots of nausea and vomiting and her urine turned dark and this prompted her to come in on admission through the ED a CAT scan was performed and she was noted to have cholelithiasis and a dilated common bile duct with elevated liver function tests and her lipase was over 19,000 Currently patient laying in bed with complaints of significant right upper quadrant pain but no nausea or vomiting at this point Review of Systems All other systems reviewed negative except as stated in HPI PMFSH - History History Provided By: Patient - Medical History Medical History: Medical History (Last Reviewed 11/24/17 @ 16:34 by NISHANT Monzon) Hx of gallstones - Surgical History Surgical History: Surgical History (Last Reviewed 11/24/17 @ 16:34 by NISHANT Monzon) No history of previous surgery - Family History Family History: Family History (Last Updated 11/24/17 @ 11:13 by PEPE Iqbal) Other No pertinent family history - Tobacco History Second Hand Smoke Exposure: Yes Tobacco Use In Past 30 Days: Yes Smoking Status: Current some day smoker Tobacco Type: Cigarettes - Alcohol History How Often Do You Have a Drink Containing Alcohol: Monthly or less - Substance Use History Substance History: No History of Abuse - Travel History Recent Travel in the [facility] Within the Last 8 Weeks: No Recent Travel Out of the Country Within the Last 8 Weeks: No - Immunization History Tetanus Immunization: Unsure Hx Influenza Vaccine This Season: No Medications and Allergies Active Medications: Active Medications Acetaminophen (Tylenol) 650 mg PO Q4H PRN PRN Reason: Temp > 100.4 Hydromorphone HCl (Dilaudid Pf Inj) 0.5 mg IV.PUSH Q4H PRN PRN Reason: ABDOMINAL PAIN 1-10 Last Admin: 11/24/17 14:53 Dose: 0.5 mg Sodium Chloride (Ns Inj) 1,000 mls @ 150 mls/hr IV.CONT .Q6H40M [facility] Last Admin: 11/24/17 16:32 Dose: 150 mls/hr Ceftazidime 1,000 mg/ Sodium (Chloride) 100 mls @ 200 mls/hr IV.SIG Q8H [facility] Last Infusion: 11/24/17 13:18 Dose: Infused Metronidazole/Sodium Chloride (Flagyl 500 Mg Inj) 100 mls @ 100 mls/hr IV.SIG Q8H [facility] Last Infusion: 11/24/17 14:24 Dose: Infused Ondansetron HCl (Zofran Odt) 4 mg PO Q6H PRN PRN Reason: NAUSEA OR VOMITING Sodium Chloride (Ns Flush) 2 ml IV.FLUSH PRN PRN PRN Reason: FLUSH AFTER USING IV ACCESS Temazepam (Restoril) 15 mg PO HS PRN PRN Reason: INSOMNIA Allergies Allergy/AdvReac Type Severity Reaction Status Date / Time No Known Allergies Allergy Verified 11/23/17 12:53 Home Medications Medication Instructions Recorded Confirmed Type tramadol 50 mg PO Q6H 11/23/17 11/23/17 History Exam Vital signs: Vital Signs 11/23/17 17:43 11/23/17 18:24 11/23/17 20:26 Temperature 98.7 F Pulse Rate 64 60 82 Respiratory Rate 18 18 20 Blood Pressure 125/75 122/78 132/70 Pulse Oximetry 98 98 11/23/17 21:16 11/23/17 21:40 11/23/17 22:56 Temperature 97.5 F L Pulse Rate 66 54 L Respiratory Rate 20 16 Blood Pressure 141/78 H 132/71 Pulse Oximetry 98 98 11/24/17 04:00 11/24/17 08:03 11/24/17 12:00 Temperature 97.9 F 99.1 F 96.9 F L Pulse Rate 70 81 89 Respiratory Rate 16 20 22 Blood Pressure 131/76 145/68 H 129/60 Pulse Oximetry 99 96 97 11/24/17 17:26 Temperature 99.1 F Pulse Rate 76 Respiratory Rate 20 Blood Pressure 130/66 Pulse Oximetry 98 Intake & Output 11/23/17 11/24/17 11/24/17 18:59 06:59 18:59 Intake Total 2400 / 2400 1200 / 1200 Balance 2400 / 2400 1200 / 1200 Weight 100 kg 103.7 kg Intake: IV 2400 / 2400 1200 / 1200 NS Inj 1,000 ML @ 150 mls/hr IV 1000 / 1000 1000 / 1000 .CONT .Q6H40M [facility] Rx#: [id number] Tazicef Inj 1,000 MG In NS Inj 200 / 200 100 / 100 100 ML @ 200 mls/hr IV.SIG Q8H [facility] Rx#:[id number] Flagyl 500 MG Inj 100 ML @ 100 200 / 200 100 / 100 mls/hr IV.SIG Q8H [facility] Rx#: [id number] Oral 0 / 0 Other: Date of Last Bowel Movement 11/20/17 Weight On Admission 103.7 kg - Constitutional no acute distress - Routine HEENT Exam Head: Present: normocephalic, atraumatic Eye: Present: EOMI - Routine Neck Exam Present: supple - Routine Cardiovascular Exam Present: RRR. Absent: murmur, gallop - Routine Abdominal Exam Present: soft, tenderness - Routine Extremities Exam Absent: cyanosis, clubbing, edema - Routine Skin Exam Present: dry, warm - Routine Neurological Exam Present: alert, oriented X3 Results - Labs CBC & Chem 7: 11/24/17 05:40 11/24/17 05:40 Labs: Laboratory Results - last 24 hr 11/24/17 11/24/17 05:40 05:40 WBC 18.0 H RBC 5.13 Hgb 15.7 H Hct 45.1 MCV 87.9 MCH 30.6 MCHC 34.8 RDW 14.3 Plt Count 220 MPV 10.3 Sodium 147 H Potassium 3.1 L Chloride 114 H Carbon Dioxide 20.2 L Anion Gap 13 BUN 9 Creatinine 0.60 Estimated GFR Greater than 89 Random Glucose 91 Calcium 8.1 L Total Bilirubin 1.1 H AST 63 H ALT 112 H Alkaline Phosphatase 115 Total Protein 6.5 Albumin 3.3 L Lipase 3111 H - Imaging Impressions Cholangiopancreatography MRI 11/24/17 00:00 CONCLUSION: Assessment and Plan - Plan Patient presenting with abdominal pain is noted to have elevated liver function tests elevated lipase and gallstones and dilated bile duct Patient has acute cholecystitis and gallstone pancreatitis Agree with current supportive care Recommend aggressive hydration MRCP was negative for choledocholithiasis Recommend surgical resection of the gallbladder with IOC Monitor labs not much to add from GI standpoint
[2017-11-25] MEDS: Sod Chloride 0.9% Inj 1,000 ML IV.CONT SCH ×3 (00:36→08:28)
[2017-11-25] MEDS: HYDROmorphone PF Inj 2 MG/ML Vial IV.PUSH PRN ×2 (04:30→08:27)
[2017-11-25 05:41] LABS: Baso # (Auto) 0.1 th/mm3 (0.0-0.2); Baso % (Auto) 0.4 % (0.0-2.0); Eos # (Auto) 0.1 th/mm3 (0.0-0.4); Eos % (Auto) 0.7 % (0.0-4.0); Hematocrit 41.3 % (35.0-46.0); Hemoglobin 13.6 gm/dL (11.6-15.3); Lymph # (Auto) 1.8 th/mm3 (1.0-4.8); Lymph % (Auto) 13.3 % (9.0-44.0); Mean Corpuscular Volume 90.9 fL (80.0-100.0); Mean Platelet Volume 9.3 fL (7.0-11.0); Mono # (Auto) 1.2 th/mm3 (0.0-0.9); Neut # (Auto) 10.1 th/mm3 (1.8-7.7); Neut % (Auto) 76.6 % (16.0-70.0); Platelet Count 201 th/mm3 (150-450); Red Blood Count 4.55 mil/mm3 (4.00-5.30); Red Cell Distribution Width 13.9 % (11.6-17.2); White Blood Count 13.3 th/mm3 (4.0-11.0)
[2017-11-25 05:50] LABS: Chloride 112 meq/L (98-107); Potassium 3.4 meq/L (3.5-5.1); Sodium 142 meq/L (136-145)
[2017-11-25 05:55] LABS: Calcium 7.6 mg/dL (8.5-10.1)
[2017-11-25 06:35] LABS: Alanine Aminotransferase 49 U/L (10-53); Albumin 2.4 g/dL (3.4-5.0); Alkaline Phosphatase 75 U/L (45-117); Anion Gap 9 meq/L (5-15); Aspartate Aminotransferase 19 U/L (15-37); Blood Urea Nitrogen 9 mg/dL (7-18); Carbon Dioxide 21.3 meq/L (21.0-32.0); Glomerular Filtration Rate Greater Than 89 mL/min (>89); Glucose,Random 87 mg/dL (74-106); Lipase 937 U/L (73-393); Total Protein 5.4 g/dL (6.4-8.2)
--- NOTE | 2017-11-25 08:08 | P.PN ---
Subjective Interval history: Follow-up acute cholecystitis. Patient seen and examined, sitting in bed comfortably in no apparent distress. Patient rates her pain a 4 out of 10 on pain scale. She states she feels much improved overnight. T-max overnight 100.5. Plan is for cholecystectomy today at 11:15. Leukocytosis improving. Physical Exam Vital signs: Vital Signs 11/24/17 12:00 11/24/17 17:26 11/24/17 20:00 Temperature 96.9 F L 99.1 F 100.5 F H Pulse Rate 89 76 88 Respiratory Rate 22 20 20 Blood Pressure 129/60 130/66 125/66 Pulse Oximetry 97 98 97 11/25/17 00:00 11/25/17 04:00 Temperature 100.1 F H 100.4 F H Pulse Rate 94 H Respiratory Rate 18 Blood Pressure 95/56 L Pulse Oximetry 96 Intake & Output 11/24/17 11/25/17 11/25/17 18:59 06:59 18:59 Intake Total 1200 / 1200 1400 / 1400 Output Total 400 / 400 Balance 800 / 800 1400 / 1400 Weight 103.6 kg Intake: IV 1200 / 1200 1400 / 1400 NS Inj 1,000 ML @ 150 mls/hr IV 1000 / 1000 1000 / 1000 .CONT .Q6H40M NATALIE Rx#: [id number] Tazicef Inj 1,000 MG In NS Inj 100 / 100 200 / 200 100 ML @ 200 mls/hr IV.SIG Q8H NATALIE Rx#:[id number] Flagyl 500 MG Inj 100 ML @ 100 100 / 100 200 / 200 mls/hr IV.SIG Q8H NATALIE Rx#: [id number] Oral 0 / 0 0 / 0 Output: Urine 400 / 400 Stool 0 / 0 Other: # Voids 4 Date of Last Bowel Movement 11/24/17 Narrative: GENERAL: Well-developed, well-nourished patient in NAD. SKIN: Warm and dry. No rash. HEAD: Normocephalic. Atraumatic. EYES: Pupils equal and round. No scleral icterus. No injection or drainage. ENT: No nasal bleeding or discharge. Mucous membranes pink and moist. NECK: Supple. Trachea midline. CARDIOVASCULAR: Regular rate and rhythm. S1, S2 noted. No murmur appreciated. RESPIRATORY: No accessory muscle use. Clear to auscultation. Breath sounds equal bilaterally. GASTROINTESTINAL: Abdomen soft, nondistended. Normoactive bowel sounds x4. Mild tenderness to palpation in right upper quadrant. MUSCULOSKELETAL: No obvious deformities. Extremities without clubbing, cyanosis , or edema. NEUROLOGICAL: Awake and alert. No obvious cranial nerve deficits. Motor grossly within normal limits. 5/5 muscle strength in bilateral upper and lower extremities. Normal speech. PSYCHIATRIC: Appropriate mood and affect; insight and judgment normal. Results - Labs CBC & Chem 7: 11/25/17 05:09 11/25/17 05:19 Laboratory Results - last 24 hr 11/25/17 11/25/17 05:09 05:19 CBC w Diff Auto diff final WBC 13.3 H RBC 4.55 Hgb 13.6 D Hct 41.3 MCV 90.9 MCH 30.0 MCHC 33.0 RDW 13.9 Plt Count 201 MPV 9.3 Neut % (Auto) 76.6 H Lymph % (Auto) 13.3 [place] % (Auto) 9.0 H Eos % (Auto) 0.7 Baso % (Auto) 0.4 Neut # (Auto) 10.1 H Lymph # (Auto) 1.8 [place] # (Auto) 1.2 H Eos # (Auto) 0.1 Baso # (Auto) 0.1 WBC Differential . Differential Comment . Sodium 142 Potassium 3.4 L Chloride 112 H Carbon Dioxide 21.3 Anion Gap 9 BUN 9 Creatinine 0.59 Estimated GFR Greater than 89 Random Glucose 87 Calcium 7.6 L Total Bilirubin 0.8 AST 19 ALT 49 Alkaline Phosphatase 75 Total Protein 5.4 L D Albumin 2.4 L D Lipase 937 H - Imaging Impressions Cholangiopancreatography MRI 11/24/17 00:00 CONCLUSION: Assessment and Plan - Assessment (1) Acute gallstone pancreatitis Code(s): K85.10 - Biliary acute pancreatitis without necrosis or infection Status: Acute - Plan This is a 27-year-old female patient with: Gallstone pancreatitis -Patient presented with significant abdominal pain, nausea, vomiting -Gallbladder ultrasound did indicate possible distal common bile duct obstruction -MRCP was performed which showed clear common bile duct with gallstones, gallbladder wall thickening versus pericholecystic fluid measuring up to a centimeter. Common bile duct is prominent at 8-9 mm in size -Laboratory studies did indicate elevated livers enzymes and significant pancreatic enzyme elevation. -Given the fact that MRCP is showing no filling defects in the common bile duct. The patient had passed a gallstone, liver enzymes and pancreatic enzymes have also improved significantly. -[employer] Att[employer] had followed the patient and indicated general surgery consultation. -General surgery was consulted and plans for lap karine today at 11:15. -Supportive care. Pain control, patient states her pain has much improved overnight. Continue Dilaudid IV as needed per pain scale. -Further hospitalization and treatment plan will depend on general surgery recommendations and how patient does post op. Leukocytosis -Improved today from 18 to 13. Low grade fevers overnight. -Given the worsening leukocytosis, gallstone pancreatitis. Patient started on empirical antibiotics include cefepime and Flagyl. Will continue for now. DVT prevention -Sequential compression devices
[2017-11-25] MEDS ORDERED: Metoprolol Tartrate 25 MG Tablet PO SCH (10:45)
[2017-11-25] MEDS ORDERED: Chlorhexidine Gluconate 2% 1 Pack (2 Cloths) TOPICAL SCH (10:45)
[2017-11-25] MEDS ORDERED: Famotidine PF Inj 20 MG/2 ML Vial ONE (10:55)
[2017-11-25] MEDS ORDERED: fentaNYL Citrate Inj 250 MCG/5 ML Ampul ONE (10:59)
[2017-11-25] MEDS ORDERED: Sodium Chlor 0.9% Inj 500 ML IV.SIG SCH (11:00)
[2017-11-25] MEDS ORDERED: Bupivacaine/Epinephrine PF Inj 0.5% 30 ML Vial ONE (11:13)
[2017-11-25] MEDS ORDERED: Ketorolac Inj 30 MG/ML (IVP) Vial IV.PUSH ONE (12:00)
[2017-11-25] MEDS ORDERED: Neostigmine Inj 5 MG/5 ML Syringe IV.PUSH ONE (12:00)
--- NOTE | 2017-11-25 13:27 | P.OP ---
- Preoperative Diagnosis (1) Cholelithiasis (2) Acute pancreatitis (3) Acute gallstone pancreatitis (4) Abnormal findings on diagnostic imaging of liver and biliary tract - Postoperative Diagnosis (1) Cholelithiasis (2) Acute pancreatitis (3) Acute gallstone pancreatitis (4) Abnormal findings on diagnostic imaging of liver and biliary tract (5) S/P laparoscopic cholecystectomy (6) Gangrenous cholecystitis Date of procedure: 11/25/17 Procedure: Laparoscopic cholecystectomy Anesthesia: GETA Surgeon: Julio Roche MD Estimated blood loss (mL): 50 (50 cc) Pathology: other (Gallbladder) Operation and Findings: PREOPERATIVE DIAGNOSIS: Cholelithiasis And/or Cholecystitis Gallstone pancreatitis POSTOP DIAGNOSIS: Gangrenous cholecystitis PROCEDURE: Laparoscopic Cholecystectomy ANESTHESIA: General SURGEON: Julio Roche M.D. ASST. see operating room records PROCEDURE DETAILS The patient was brought to the operating room and after proper identification. The patient was intubated after the induction of appropriate anesthesia. The patient remained under general anesthesia for the duration of the case. The patient was prepped with an antiseptic over the abdomen in the usual fashion and then he was draped in the usual sterile fashion. Following the draping, the pneumoperitoneum was established via Veress needle after saline load test had been performed via a infra-umbilical incision. After direct visualization of the peritoneum, the trocar was introduced and insufflation was begun. After appropriate insufflation a scope was inserted and the abdomen was visually inspected to be benign in gross visualization. Next, another 5 mm port was placed just below the xiphoid. This was then followed by the placement of 5 mm ports in between the 2 previously placed ports. A third working port is placed in the right upper quadrant because the amount of inflammatory response of the gallbladder and surrounding tissues all port sites were anesthetized with a Marcaine solution. The gallbladder was easily identified. There were a many adhesions. There is a fair amount of greenish fluid over the liver down the pelvis and along the right paracolic gutter this is all removed no intraabdominal fluid. Upon retraction of the gallbladder, the infundibulum was identified. Fairly inflamed after some blunt dissection, the cystic duct was identified and then skeletonized using the small grasper. After appropriate identification of the cystic duct, it was clipped 3 times with 2 clips staying, 1 clip going. It was then transected with scissors. This was performed without any complication. Next, a cystic artery was identified and 2 surgical clips on the proximal end and 1 surgical clip on the distal end were applied and this was transected using the laparoscopic scissors. Following this, the gallbladder was easily retracted back and electrocautery was used to dissect the gallbladder fossa. There was a well-established plane. After application of the clips, no further bleeding from this site was appreciated. Hemostasis was attained on the gallbladder fossa using a small amount of electrocautery. Following the removal of the gallbladder from the gallbladder fossa, it was placed in an endobag and subsequently removed from the supraumbilical port site. We double checked for hemostasis at the cystic artery. Also checked the cystic duct stump which showed no bile leakage. Some stones had been spilled and these were evacuated and retrieved Fair amount inflammatory spots around the liver and other peritoneal surfaces were removed. We irrigated down the pelvis we used approximately 9 L of saline to irrigate the abdomen The appendix was seen and appeared normal the right ovary appeared normal left ovary appeared normal and the uterus is normal Irrigating solution is removed All ports were then removed The infra-umbilical fascia was closed directly with 0 Vicryl and then the dermis was closed at all 3 incision sites with a 4-0 absorbable monofilament in a running subcuticular manner. The fascia was closed in a simple interrupted manner. Steri-Strips and dressings were placed over the incision sites. The patient was awakened from anesthesia. The patient was returned to post-anesthesia care unit in a stable condition. DETAIL SPECIFIC TO THIS PROCEDURE: Fairly inflamed gallbladder gangrene of the gallbladder numerous stones in the gallbladder numerous inflammatory response over the liver edge along peritoneal surfaces Julio Roche M.D.
== END 2017-11-25 16:26 | disposition home or self-care (01) ==
LOC: PHED 12:35 → PHEDA 19:26 → PH3 21:35
PROVIDERS: ADMIT Hospitalist; ATTEND Hospitalist